=== PATIENT | female | born 1970 | race Caucasian/White ===

== ENCOUNTER 2016-09-16 12:36 | Emergency (ER) | payer OTHER ==
[~2016-09-16] VITALS: Ht 167.6 cm; Wt 144.6 kg
[2016-09-16] VITALS (8 sets, daily range): BP systolic 119–152; BP diastolic 67–113; PULSE 102–116; RESP 12–26; O2SAT 97–99
[~2016-09-16 12:36] MED LIST: BUPR150T8 PO; CHOL-9 PO; DULO60CA42 PO; MAGN300S PO; MELA1TAB11 PO; METH30CP2 PO; METH500T PO; OMEP-113 PO; PROP120C2 PO; VITA1CAP PO
--- NOTE | 2016-09-16 13:21 | ED.REPORT ---
HPI-Chest Pain 40 and Over Date of Service Sep 16, 2016 ED Provider: MD Sen This is a 45 year old female with a history of migraines, DM, hyperlipidemia, GERD, and fibromyalgia presenting to the emergency department complaining of sudden onset pleuritic chest discomfort that began just prior to arrival. Pt developed sudden onset "rib cage tightening," and states she consequently became short of breath, nauseous, and dizzy. Pain is exacerbated by deep inspiration. Pt then sat down, symptoms persisted for 5 minutes and spontaneously resolved. Reports radiation to the upper and mid-back. Denies diaphoresis, vomiting, abdominal pain, diarrhea, constipation, fever, chills, or change LOC. Nursing Notes Stated Complaint: CHEST PAIN,SOB Chief Complaint: Chest Pain Nursing Notes Reviewed: Yes Allergies: Coded Allergies: No Known Allergies (Verified Allergy, Unknown, 08/03/16) Scheduled Bupropion ER (Wellbutrin SR) 150 Mg Tablet.er 150 MG PO BID Duloxetine (Cymbalta) 60 Mg Capsule.dr 60 MG PO DAILY Magnesium Citrate (Citrate of Magnesia) 300 Ml Solution 300 ML PO DIRECTED Drink contents of bottle when arrive at home and remain close to restroom until you have a bowel movement. Omeprazole Magnesium (Omeprazole) 20 Mg Capsule.dr 20 MG PO DAILY Miscellaneous Medications Cholecalciferol (Vitamin D3) (Vitamin D3) 10,000 Unit Tablet 10,000 UNIT PO Melatonin/Pyridoxine (Melatonin 3 mg Tablet) 1 Each Tablet 1 EACH PO Methocarbamol (Robaxin) 500 Mg Tablet 500 MG PO Methylphenidate ER (Metadate CD) 30 Mg Cpmp.30.70 30 MG PO Propranolol ER (Propranolol ER) 120 Mg Cap.sa.24h 120 MG PO Vitamin B Complex (Vitamin B Complex) 1 Each Capsule 1 EACH PO General Time Seen by MD: 13:20 Chief Complaint Chest pain Hx Obtained From: Patient Arrived By: Walk-in Sudden in Onset?: Yes Onset Occurred: Just prior to arrival Symptom Duration: Since onset Severity: Current: Mild Pertinent Negative: Pt denies other symptoms Recent Healthcare: No recent doctor visit, No recent hospitalization Similar Sx Previous: No Past Medical History Past Medical History 1. Fibromyalgia. 2. Migraines without aura. 3. Depression. 4. ADHD. 6. Osteoarthritis. 7. Spinal stenosis. 8. Insomnia. 9. Prediabetic. 10. Hyperlipidemia. 11. GERD. 12. Arthritis Reports: Diabetes mellitus Past Surgical History Cholecystectomy. Tonsillectomy. L wrist cyst removal Family History Heart disease- father (early 60's) Smoking History Never Smoker Social History Alcohol Use: Denies alcohol use Drug Use: Denies drug use Other Social History: Good social support, , Local resident Ambulatory Status Independent Review of Systems Constitutional: Denies: Chills, Fever Respiratory: Reports: Shortness of breath, Denies: Non-productive cough Cardiovascular: Reports: Chest pain GI: Reports: Nausea, Denies: Abdominal pain, Vomiting Musculoskeletal: Reports: Back pain Skin: Denies Diaphoresis Neurologic: Reports: Dizziness, Denies: Change LOC, Headache Complete sys rev & neg: except as marked. Physical Exam Initial Vital Signs Vital Signs (First) Date Time Temp Pulse Resp B/P Pulse Ox O2 Delivery O2 Flow Rate FiO2 09/16/16 12:52 36.4 116 17 151/91 99 Room Air Initial VS: Reviewed Head / Eyes: Atraumatic, Normocephalic, PERRL ENT: Mucous membranes moist, Conjunctiva normal, No scleral icterus Neck: Supple, Non-tender, Full range of motion Extremities: Vascular intact, Neuro intact, No swelling, No tenderness Skin: Warm, Dry, No cyanosis Neurologic: Alert, Oriented, Nonfocal Psychiatric: Mood/affect normal, Behavior normal, Normal thought content General/Constitutional: Awake, Alert Appearance / Presentation: Positive: Obese Respiratory / Chest: Breath sounds NL, Breath sounds = bilat, No respiratory distress, No rales, No rhonchi, No wheezing, No stridor, No chest tenderness Cardiovascular: Regular rhythm, Heart sounds NL, No murmurs, Peripheral circulation NL, Pulses = bilaterally, No gross BP differential Heart Rate / Rhythm: Positive: Bradycardia, Tachycardia Abdomen: Soft, Non-tender, McBurney's non-tender, No guarding, No rebound, BS normoactive, No distention, No hernia, No palpable mass Interpretation & Diagnostics Lab Results Interpretation Result Diagram: 09/16/16 1340 09/16/16 1340 Test 09/16/16 13:40 White Blood Count 9.7th/mm3 (3.8-10.1) Red Blood Count 4.50mil/mm3 (3.90-5.20) Hemoglobin 12.8g/dL (12.0-15.6) Hematocrit 38.6% (35.0-46.0) Mean Corpuscular Volume 85.8fL (81-100) Mean Corpuscular Hemoglobin 28.4pg (27.0-35.0) Mean Corpuscular Hemoglobin Concent 33.2% (32.0-37.0) Red Cell Distribution Width 13.2% (12.3-15.4) Platelet Count 271bil/L (150-400) Neutrophils (%) (Auto) 81.7% (40-74) Lymphocytes (%) (Auto) 9.8% (14-46) Monocytes (%) (Auto) 7.6% (4-12) Eosinophils (%) (Auto) 0.4% (0-5) Basophils (%) (Auto) 0.3% (0-3) Sodium Level 138mEq/L (134-144) Potassium Level 4.1mEq/L (3.5-5.2) Chloride Level 100mEq/L (97-108) Carbon Dioxide Level 23mmol/L (18-29) Blood Urea Nitrogen 16mg/dL (6-24) Creatinine 0.84mg/dL (0.57-1.00) Estimat Glomerular Filtration Rate 106mL/min (>59) Glucose Level 101mg/dL (60-99) Calcium Level 8.4mg/dL (8.5-10.1) Magnesium Level 1.7mg/dL (1.6-2.6) Total Bilirubin 0.3mg/dL (0.0-1.2) Aspartate Amino Transf (AST/SGOT) 47U/L (0-50) Alanine Aminotransferase (ALT/SGPT) 45U/L (0-32) Alkaline Phosphatase 77U/L (25-150) Troponin T < 0.010ug/L (0.0-0.011) Total Protein 6.7g/dL (6.4-8.4) Albumin 3.9g/dL (3.4-5.0) ECG Interpretation ECG Interpretation: Sinus tachycardia at a rate of 102 Time: 13:48 Interpreted by: ED physician Re-Eval/Medical Decision Counseled Regarding: Diagnosis, Lab results, Need for follow-up Discharge & Departure Departure Notes I concern here is for possible pulmonary embolism versus new acute coronary syndrome. I have expressed my concerns to Dr. Suarez who will assume care of this patient at 1500 hrs. Primary Impression: Chest pain Discharge Condition All VS Reviewed: Yes Condition: Stable Referrals: Lynn Gunter PA-C (PCP) Care Transferred to: [facility] Transferred at: 15:04 Scribe Attestation Portions of this note were transcribed by Citlali Soriano. I, Dr. Chatterjee personally performed the history, physical exam and medical decision-making; I reviewed and confirmed the accuracy of the information in the transcribed note. Signed by: Citlali Soriano. 09/16/2016, 15:00. Rubens Chatterjee MD Sep 16, 2016 13:21 CITLALI SORIANO Sep 16, 2016 13:23
[2016-09-16 13:45] LABS: BASOPHILS % (AUTO) 0.3 % (0-3); EOSINOPHILS % (AUTO) 0.4 % (0-5); MONOCYTES % (AUTO) 7.6 % (4-12); Mean Corpuscular Hemoglobin 28.4 pg (27.0-35.0); Mean Corpuscular Volume 85.8 fL (81-100); NEUTROPHILS % (AUTO) 81.7 % (40-74); Platelet Count 271 bil/L (150-400)
[2016-09-16 14:10] LABS: TROPONIN T < 0.010 ug/L (0.0-0.011)
[2016-09-16 14:17] LABS: Magnesium 1.7 mg/dL (1.6-2.6)
--- NOTE | 2016-09-16 15:45 | DRSVH ---
PROCEDURE: CT ANGIO CHEST PULMONARY EMBOLISM ([id number]) INDICATIONS: Chest pain, tachycardia TECHNIQUE: After the administration of intravenous contrast, 2 mm thick sections acquired from the pulmonary api leona to the posterior costophrenic angles. 3-dimensional maximum intensity projection (MIP) coronal a nd sagittal reformats were then acquired through the thorax. For radiation dose reduction, the follo wing was used: automated exposure control, adjustment of mA and/or kV according to patient size. COMPARISON: None. FINDINGS: Image quality: Excellent. Pulmonary arteries: Pulmonary arteries are normal in size, and demonstrate no intraluminal filling d efects to suggest central pulmonary embolism. Lungs and pleura: Lungs are clear. No pleural effusions or pneumothorax. Central and peripheral ai rways are patent. Mediastinum: Heart size is normal, without pericardial effusion. No mediastinal or hilar adenopathy . Thoracic aorta is normal in caliber and enhancement. Esophagus is normal in caliber, without hiat al hernia. Bones and chest wall: No suspicious bony lesions. Ribs and thoracic spine appear intact throughout. Thyroid gland is grossly unremarkable. No axillary or supraclavicular adenopathy. Abdomen: The liver is diffusely hypodense suggesting hepatic steatosis. Visualized upper abdominal s olid organs appear normal in the early arterial phase of enhancement. IMPRESSION: 1. No acute pulmonary embolus. 2. No findings to explain chest pain and tachycardia. 3. Hepatic steatosis. Dictated by: Ainsley Espinoza M.D. on 09/16/2016 at 15:40 Approved by: Ainsley Espinoza M.D. on 09/16/2016 at 15:43
[2016-09-16] MEDS ORDERED: Butalbital-Acet-Caffeine Tablet PO ONE (17:35)
== END 2016-09-16 18:24 | disposition home or self-care (01) ==
LOC: SED 12:36
DX: R07.81 Pleurodynia (principal); R06.02 Shortness of breath; R11.0 Nausea; R42 Dizziness and giddiness; M79.7 Fibromyalgia; F90.9 Attention-deficit hyperactivity disorder, unspecified type; E11.9 Type 2 diabetes mellitus without complications; E78.5 Hyperlipidemia, unspecified; K21.9 Gastro-esophageal reflux disease without esophagitis
CPT/HCPCS: 36415; 71275; 80053; 82948; 83735; 84484; 85025; 93005; 96374; 99285; Q9967

== ENCOUNTER 2017-04-12 23:35 | Emergency (ER) | payer OTHER ==
[~2017-04-12] VITALS: Ht 165.1 cm; Wt 134.6 kg
[~2017-04-12 23:35] MED LIST changes: -MAGN300S PO; +[UNRECOGNIZED DRUG - CODE] PO
[2017-04-12 23:38] VITALS: BP 156/103; PULSE 87; RESP 16; O2SAT 97
[2017-04-13 00:10] LABS: BASOPHILS % (AUTO) 0.6 % (0-3); EOSINOPHILS % (AUTO) 1.2 % (0-5); MONOCYTES % (AUTO) 7.6 % (4-12); Mean Corpuscular Hemoglobin 28.5 pg (27.0-35.0); Mean Corpuscular Volume 83.8 fL (81-100); NEUTROPHILS % (AUTO) 42.5 % (40-74); Platelet Count 304 bil/L (150-400)
--- NOTE | 2017-04-13 01:32 | ED.REPORT ---
HPI- Female Date of Service Apr 13, 2017 ED Provider: Amanuel Waldrop MD The pt is a 46 y/o female with a hx of DM, hyperlipidemia, GERD, and fibromyalgia who presents to the ED complaining of sharp, right flank pain, onset yesterday. Associated sx include lack of appetite, nausea, and subjective fever. She denies dysuria. Nursing Notes Stated Complaint: LOWER RT FLANK PAIN Chief Complaint: Female Abdominal Pain Nursing Notes Reviewed: Yes Allergies: Coded Allergies: No Known Allergies (Verified Allergy, Unknown, 08/03/16) Scheduled Bupropion ER (Wellbutrin SR) 150 Mg Tablet.er 150 MG PO BID Cephalexin (Cephalexin) 500 Mg Tablet 500 MG PO TID Duloxetine (Cymbalta) 60 Mg Capsule.dr 60 MG PO DAILY Magnesium Citrate (Citrate of Magnesia) 300 Ml Solution 300 ML PO DIRECTED Drink contents of bottle when arrive at home and remain close to restroom until you have a bowel movement. Omeprazole Magnesium (Omeprazole) 20 Mg Capsule.dr 20 MG PO DAILY Scheduled PRN Ondansetron ODT (Ondansetron ODT) 8 Mg Tab.rapdis 8 MG PO TID PRN PRN For Nausea Miscellaneous Medications Cholecalciferol (Vitamin D3) (Vitamin D3) 10,000 Unit Tablet 10,000 UNIT PO Melatonin/Pyridoxine (Melatonin 3 mg Tablet) 1 Each Tablet 1 EACH PO Methocarbamol (Robaxin) 500 Mg Tablet 500 MG PO Methylphenidate ER (Metadate CD) 30 Mg Cpmp.30.70 30 MG PO Propranolol ER (Propranolol ER) 120 Mg Cap.sa.24h 120 MG PO Vitamin B Complex (Vitamin B Complex) 1 Each Capsule 1 EACH PO General Time Seen by MD: 01:24 Chief Complaint Flank pain right Hx Obtained From: Patient Arrived By: Walk-in Sudden in Onset?: Yes Onset Occurred: Yesterday Symptom Duration: Since onset Location: : Flank right Quality: Cramping, Sharp Radiation: Does not radiate Severity: Current: Moderate Severity: Maximum: Severe Recent Healthcare: Recent doctor visit Similar Sx Previous: No Past Medical History Past Medical History 1. Fibromyalgia. 2. Migraines without aura. 3. Depression. 4. ADHD. 6. Osteoarthritis. 7. Spinal stenosis. 8. Insomnia. 9. Prediabetic. 10. Hyperlipidemia. 11. GERD. 12. Arthritis Reports: Diabetes mellitus Past Surgical History Cholecystectomy. Tonsillectomy. L wrist cyst removal Family History Heart disease- father (early 60's) Smoking History Never Smoker Social History Alcohol Use: Denies alcohol use Drug Use: Denies drug use Other Social History: Good social support, , Local resident Ambulatory Status Independent Review of Systems Reports: lack of appetite Constitutional: Reports: Fever GI: Reports: Nausea Female: Reports: Flank pain (right sided), Denies: Dysuria Complete sys rev & neg: except as marked. Physical Exam Initial Vital Signs Vital Signs (First) Date Time Temp Pulse Resp B/P Pulse Ox O2 Delivery O2 Flow Rate FiO2 04/12/17 23:38 36.8 87 16 156/103 97 Room Air Initial VS: Reviewed, Vital signs abnormal Head / Eyes: Atraumatic, Normocephalic Neck: Supple, Non-tender, Full range of motion Respiratory: Breath sounds normal, Clear to auscultation, No respiratory distress Cardiovascular: Regular rate & rhythm, Heart sounds normal, Intact distal pulses Extremities: Vascular intact, Neuro intact, No swelling, No tenderness Skin: Warm, Dry, No cyanosis Neurologic: Alert, Oriented, Nonfocal Female Genitourinary: Exam deferred General/Constitutional: Awake, Alert, Cooperative Abdomen: Atraumatic, Soft, No guarding, No rebound Tenderness/Guarding/Rebound: Positive: Tender periumbilical Back: Atraumatic, Full range of motion Right CVA tenderness Interpretation & Diagnostics Lab Results Interpretation Result Diagram: 04/13/17 0005 04/13/17 0005 Test 04/13/17 00:05 04/13/17 01:32 White Blood Count 8.5th/mm3 (3.8-10.1) Red Blood Count 4.56mil/mm3 (3.90-5.20) Hemoglobin 13.0g/dL (12.0-15.6) Hematocrit 38.2% (35.0-46.0) Mean Corpuscular Volume 83.8fL (81-100) Mean Corpuscular Hemoglobin 28.5pg (27.0-35.0) Mean Corpuscular Hemoglobin Concent 34.0% (32.0-37.0) Red Cell Distribution Width 14.0% (12.3-15.4) Platelet Count 304bil/L (150-400) Neutrophils (%) (Auto) 42.5% (40-74) Lymphocytes (%) (Auto) 48.0% (14-46) Monocytes (%) (Auto) 7.6% (4-12) Eosinophils (%) (Auto) 1.2% (0-5) Basophils (%) (Auto) 0.6% (0-3) Sodium Level 141mEq/L (134-144) Potassium Level 3.6mEq/L (3.5-5.2) Chloride Level 103mEq/L (97-108) Carbon Dioxide Level 24mmol/L (18-29) Blood Urea Nitrogen 18mg/dL (6-24) Creatinine 1.02mg/dL (0.57-1.00) Estimat Glomerular Filtration Rate 84mL/min (>59) Glucose Level 94mg/dL (60-99) Calcium Level 8.9mg/dL (8.5-10.1) Magnesium Level 2.0mg/dL (1.6-2.6) Total Bilirubin 0.3mg/dL (0.0-1.2) Aspartate Amino Transf (AST/SGOT) 21U/L (0-50) Alanine Aminotransferase (ALT/SGPT) 25U/L (0-32) Alkaline Phosphatase 77U/L (25-150) Total Protein 7.1g/dL (6.4-8.4) Albumin 3.9g/dL (3.4-5.0) Lipase 25U/L (13-60) Hold Gonzáles Top Tube Received (Received) Urine Color Yellow (YELLOW) Urine Appearance Slightly cloudy Urine pH 5.5 (5.0-8.0) Urine Specific [place] 1.025 (1.003-1.035) Urine Protein Negativemg/dL (NEG,TRACE) Urine Glucose (UA) Negativemg/dL (NEGATIVE) Urine Ketones Tracemg/dL (NEGATIVE) Urine Occult Blood Large (NEGATIVE) Urine Nitrite Negative (NEGATIVE) Urine Bilirubin Negative (NEGATIVE) Urine Urobilinogen Normalmg/dL (NORMAL) Urine Leukocyte Esterase Small (NEGATIVE) Urine RBC 11-50/hpf (0-2) Urine WBC 11-50/hpf (0-5) Urine Epithelial Cells Few/hpf (NONE-MOD) Urine Crystals None seen (NONE SEEN) Urine Bacteria Moderate/hpf (NONE-FEW) Urine Hyaline Casts None/lpf (NONE) Urine Granular Casts None seen (NONE SEEN) Urine Waxy Casts None seen (NONE SEEN) Urine Red Blood Cell Casts None seen (NONE SEEN) Urine White Blood Cell Casts None seen (NONE SEEN) Urine Mucus None seen (None Seen) Urine Trichomonas None seen (NONE SEEN) Urine Yeast None (NONE SEEN) Urinalysis Comment None Urine Culture Reflexed Indicated Blood Gas: pH = 7.3 pCO2 = 51 cHCO3 = 26.9 cBase = 1.2 Lab Results Interpretation: TNTC RBC per HPF, TNTC WBC per hpf, culture pending. Re-Eval/Medical Decision Med Decision/Clinical Course 46-year-old female with right flank pain and infected urine, consistent with right pyelonephritis. She has had some nausea and poor oral intake, so first dose of antibiotic was given IV. She will be discharged home with Keflex and Zofran and instructions for repeat urine sample after treatment. Source of Hx: Old records Re-Evaluation/Progress : Time of Eval: 02:47 Re-Evaluation/Progress Note: Rechecked pt. Discussed lab results, diagnosis and plan to discharge. Pt understands and agrees with the plan. F/U instruction and RTER warning given. All questions addressed. Counseled Regarding: Diagnosis, Lab results, Need for follow-up, When/why to return to ED Discharge & Departure Impression: Primary Impression: Pyelonephritis Disposition: Home Discharge Condition All VS Reviewed: Yes Condition: Improved Patient Instructions: Kidney Infection (ED) Additional Instructions: You have an infection of the right kidney it appears. You were given Rocephin ( ceftriaxone) 2 g IV in the emergency room. Continue cephalexin (Keflex) 500 mg 3 times a day for an additional week, #21 prescribed. Ondansetron (Zofran) 8 mg ODT, one half to one tablet dissolved orally 3 times a day as needed for nausea and vomiting, #10 prescribed. Drink plenty of fluids and cranberry juice. Return to the emergency room if you have increased pain, increased fever , or you vomiting or medications. Follow-up with your primary doctor in 2 weeks to have the urine rechecked. Call me at [phone] between the hours at 9 PM and 6 AM for the next couple nights if you have any concerns or questions. Referrals: Lynn Gunter PA-C (PCP) Scribe Attestation Portions of this note were transcribed by Niko Pérez. I,, personally performed the history,physical exam and medical decision-making;I reviewed and confirmed the accuracy of the information in the transcribed note. Signed by Dilan Briggs. 04/13/17 copies to: Lynn Gunter PA-C, Howard L MD Apr 13, 2017 01:32 Niko Pérez Apr 13, 2017 01:58
[2017-04-13 01:45] LABS: APPEARANCE,URINE SLIGHTLY CLOUDY (CLEAR,HAZY); COLOR,URINE YELLOW (YELLOW); OCCULT BLOOD,URINE LARGE (NEGATIVE); PH,URINE 5.5 (5.0-8.0); UROBILINOGEN,URINE NORMAL (NORMAL)
[2017-04-13] MEDS ORDERED: Ondansetron 2 mg/mL 2 mL Inj IVPUSH PRN (02:00)
[2017-04-13] MEDS ORDERED: cefTRIAXone Inj 2,000 MG in Dextrose 5% Minibag Plus 50 ML IV ONE (02:00)
[2017-04-13 03:17] VITALS: BP 140/92; PULSE 89; RESP 16; O2SAT 98
[2017-04-13] MEDS ORDERED: ONDA8TAB10 PO (03:19)
[2017-04-13] MEDS ORDERED: CEPH500T PO (03:19)
== END 2017-04-13 03:16 | disposition home or self-care (01) ==
LOC: SED 23:35
DX: N10 Acute pyelonephritis (principal); E78.5 Hyperlipidemia, unspecified; E11.9 Type 2 diabetes mellitus without complications; K21.9 Gastro-esophageal reflux disease without esophagitis; M79.7 Fibromyalgia; Z90.49 Acquired absence of other specified parts of digestive tract
CPT/HCPCS: 36415; 80053; 81000; 81025; 83690; 83735; 85025; 87086; 87088; 96365; 96375; 99284; J0696; J2405